=== PATIENT | male | born 1940 | race Caucasian/White ===

== ENCOUNTER 2018-01-02 19:55 | Inpatient (IN) | payer MEDICARE, MEDICAID ==
[2018-01-02 20:36] LABS: % BASOPHILS 0.7 % (0.0-2.0); % EOSINOPHILS 5.2 % (0.0-5.0); % LYMPHOCYTES 25.7 % (20.0-50.0); % MONOCYTES 13.3 % (2.0-10.0); % NEUTROPHILS 55.1 % (40.0-80.0); EOSINOPHILE ABSOLUTE 0.3 Th/cmm (0.1-0.4); HEMATOCRIT 33.8 % (41.0-60); HEMOGLOBIN 11.5 gm/dL (12-16); LYMPHOCYTE ABSOLUTE 1.3 Th/cmm (1.5-3.0); MEAN CELL VOLUME 89.6 fl (80-99); MEAN CORPUSCULAR HEMOGLOBIN 30.4 pg (27.0-31.0); MEAN CORPUSCULAR HGB CONC 33.9 pg (28.0-36.0); MEAN PLATELET VOLUME 7.5 fl; MONOCYTE ABSOLUTE 0.7 Th/cmm (0.3-1.0); NEUTROPHILE ABSOLUTE 2.9 Th/cmm (1.8-8.0); PLATELET COUNT 235 Th/cmm (150-400); RED BLOOD COUNT 3.77 Mil/cmm (3.80-5.80); RED CELL DISTRIBUTION WIDTH 12.8 % (11.5-20.0); WHITE BLOOD COUNT 5.2 Th/cmm (4.8-10.8)
[2018-01-02 20:48] LABS: INR 1.24 (0.5-1.4); PROTHROMBIN TIME (TEST) 12.8 SECONDS (9.5-11.5)
[2018-01-02 20:56] LABS: ALB/GLOB RATIO 1.6 (1.0-1.8); ALBUMIN 3.9 gm/dL (4.2-5.5); ALKALINE PHOSPHATASE 73 U/L (34-104); ANION GAP 10.1 (7.0-16.0); BILIRUBIN,TOTAL 0.3 mg/dL (0.3-1.0); BUN - UREA NITROGEN 30 mg/dL (7-25); CALCIUM SERUM 9.1 mg/dL (8.6-10.3); CHLORIDE 105 mEq/L (98-107); CREATININE - SERUM 1.1 mg/dL (0.7-1.3); GLUCOSE 104 mg/dL (70-105); PHOSPHOROUS 3.3 mg/dL (2.5-5.0); POTASSIUM SERUM 4.1 mEq/L (3.5-5.1); SGOT 11 U/L (13-39); SGPT/ALT 6 U/L (7-52); SODIUM SERUM 137 mEq/L (136-145); TOTAL PROTEIN,SERUM 6.4 gm/dL (6.0-8.3)
--- NOTE | 2018-01-02 21:05 | ED Physician Chart ---
ED Chief Complaint/HPI - Patient Information Date Seen:: 01/02/18 Time Seen:: 20:00 Chief Complaint:: increased agitation and psychosis History of Present Illness:: increased agitation and psychosis Allergies:: Allergies Allergy/AdvReac Type Severity Reaction Status Date / Time No Known Allergies Allergy Verified 01/02/18 20:17 Vitals:: Vital Signs - 8 hr 01/02/18 20:00 Temp 98.9 F HR 70 RR 18 BP 118/74 O2 Sat % 100 Historian:: Medical Records Review:: Nurse's Note Reviewed, Transfer documents Reviewed ED Review of Systems - Review of Systems General/Constitutional: No fever, No chills, No weight loss, No weakness, No diaphoresis, No edema, No loss of appetite Skin: No skin lesions, No rash, No bruising Head: No headache, No light-headedness Eyes: No loss of vision, No pain, No diplopia ENT: No earache, No nasal drainage, No sore throat, No tinnitus Neck: No neck pain, No swelling, No thyromegaly, No stiffness, No mass noted Cardio Vascular: No chest pain, No palpitations, No PND, No orthopnea, No edema Pulmonary: No SOB, No cough, No sputum, No wheezing GI: No nausea, No vomiting, No diarrhea, No pain, No melena, No hematochezia, No constipation, No hematemesis G/U: No dysuria, No frequency, No hematuria Musculoskeletal: No bone or joint pain, No back pain, No muscle pain Endocrine: No polyuria, No polydipsia Psychiatric: Prior psych history, Other (agitation) Hematopoietic: No bruising, No lymphadenopathy Allergic/Immuno: No urticaria, No angioedema Neurological: No syncope, No focal symptoms, No weakness, No paresthesia, No headache, No seizure, No dizziness, No confusion, No vertigo ED Past Medical History - Past Medical History Past Medical History: HTN, DM, CAD, CHF, PUD/GERD, Dementia, Other (pacemaker; atrial fibrillation; sleep apnea; pneumonia) Psychiatricy History: Bipolar Family Medical History - Family Member Mother History Unknown: Yes Ethnicity: Non- ED Physical Exam - Physical Examination General/Constitutional: Awake, Well-developed, well-nourished, Alert, GCS 15, Non-toxic appearing, Ambulatory Other Gen/Cons comments:: marked agitation patient is a threat to himself and to others. he hits his own right elbow against the wall and is on a blood thinner. Head: Atraumatic Eyes: Lids, conjuctiva normal, PERRL, EOMI Skin: Nl inspection, No rash, No skin lesions, No ecchymosis, Well hydrated, No lymphadenopathy Respiratory: Nl effort/Exclusion, Clear to Auscultation, No Wheeze/Rhonchi/Rales Cardio Vascular: RRR, No murmur, gallop, rubs, NL S1 S2 GI: No tenderness/rebounding/guarding, No organomegaly, No hernia, Normal BS's, Nondistended, No mass/bruits, No McBurney tenderness Extremities: No tenderness or effusion, Full ROM, normal strength in all extremities, No edema, Normal digits & nails Other Extremities comments:: very strong. patient is trying to hit personnel. Neuro/Psych: Alert/oriented Other Neuro/Psych comments:: patient is markedly agitated. Misc: Normal back, No paraspinal tenderness ED Labs/Radiology/EKG Results - Lab Results Results: Laboratory Tests 01/02/18 01/02/18 01/02/18 20:29 20:29 20:29 WBC 5.2 RBC 3.77 L Hgb 11.5 L Hct 33.8 L MCV 89.6 MCH 30.4 MCHC Differential 33.9 RDW 12.8 Plt Count 235 MPV 7.5 Neutrophils % 55.1 Lymphocytes % 25.7 Monocytes % 13.3 H Eosinophils % 5.2 H Basophils % 0.7 PT INR PTT (Actin FS) Sodium 137 Potassium 4.1 Chloride 105 Carbon Dioxide 26.0 Anion Gap 10.1 BUN 30 H Creatinine 1.1 Est GFR ( Amer) TNP Est GFR (Non-Af Amer) TNP BUN/Creatinine Ratio 27.3 Glucose 104 Calcium 9.1 Phosphorus 3.3 Magnesium 2.0 Total Bilirubin 0.3 AST 11 L ALT 6 L Alkaline Phosphatase 73 Total Protein 6.4 Albumin 3.9 L Globulin 2.5 Albumin/Globulin Ratio 1.6 Valproic Acid 33.4 L 01/02/18 20:29 WBC RBC Hgb Hct MCV MCH MCHC Differential RDW Plt Count MPV Neutrophils % Lymphocytes % Monocytes % Eosinophils % Basophils % PT 12.8 H INR 1.24 PTT (Actin FS) 35.9 Sodium Potassium Chloride Carbon Dioxide Anion Gap BUN Creatinine Est GFR ( Amer) Est GFR (Non-Af Amer) BUN/Creatinine Ratio Glucose Calcium Phosphorus Magnesium Total Bilirubin AST ALT Alkaline Phosphatase Total Protein Albumin Globulin Albumin/Globulin Ratio Valproic Acid ED Assessment - Assessment General Assessment: EKG from 8:32:41 p.m.: normal sinus rhythm, LVH, nonspecific ST T wave changes , repolarization, movement artifact. Q waves are prsented throughout in leads II, III and AVF. He also has Q waves in V1 to V6. ST elevation present in V2 to V6? (complicated by movement artifact.) spoke to Dr. Barraza at 10:00 p.m. He will admit the patient. Troponin is positive at 0.51 George admission will be cancelled and patient will be admitted to the acute hospital, to the ICU. ED Septic Shock - . Is Septic Shock (SBP<90, OR Lactate>4 mmol\L) present?: No - <6hrs of presentation: Vital Signs: Vital Signs - 8 hr //18 20:00 Temp 98.9 F HR 70 RR 18 BP 118/74 O2 Sat % 100 ED Reassessment (Disposition) - Reassessment Reassessment Condition:: Unchanged - Diagnosis Diagnosis:: Coronary artery disease ST elevation in multiple leads. Elevated troponin. Pacemaker. COPD DM HTN GERD Dementia Bipolar Pneumonia Atrial fibrillation Sleep apnea CHF - Patient Disposition Discharge/Transfer:: Acute Care w/in this hosp Admitted to:: ICU
[2018-01-02] MEDS ORDERED: Haloperidol Lactate 5 mg/mL 1mL Vial IM STA (21:21)
[2018-01-02] MEDS ORDERED: Haloperidol Lactate 5 mg/mL 1mL Vial ONE (21:21)
[2018-01-02] MEDS ORDERED: Hydrocodone/APAP 5mg/325mg Tab PO PRN (22:07)
[2018-01-02] MEDS ORDERED: guaiFENesin 200 MG/10 ML UDC PO PRN (22:07)
[2018-01-02] MEDS ORDERED: Non-Formulary Item 1 EA (Glucagon,Human Recombinant [Glucagon Emergency Kit] 1 MG) IJ PRN (22:07)
--- NOTE | 2018-01-02 23:23 | History & Physical ---
ADMIT DATE: 01/02/2018 HISTORY OF PRESENT ILLNESS: This patient came with increased agitation, he has increased psychosis and the patient came from [facility]. The patient known to have history of coronary artery disease, history of status post pacemaker, history of hypertension, diabetes and history of CHF and dementia. The patient has history of bipolar disorder. PHYSICAL EXAMINATION: GENERAL: On exam, he is alert, oriented, very agitated male. HEAD: Normal. ENT: Normal. NECK: Supple, nontender. LUNGS: Clear. CARDIOVASCULAR SYSTEM: S1, S2 heard. ABDOMEN: Soft, bowel sounds heard. CENTRAL NERVOUS SYSTEM: Grossly normal. LABORATORY DATA: Troponin was slightly high. The patient's EKG showed Q-waves in LVH pattern. DIAGNOSES: The patient since his troponin was high, diagnoses of possible acute myocardial infarction, ST elevation, status post pacemaker, coronary artery disease, hypertension, history of diabetes, and history of status post pacemaker was made. PLAN: The patient is being admitted to tele bed inpatient and I will have Dr. Rahul Maradiaga see the patient and psychiatrist see the patient, Dr. Malloy and I will follow the patient. JOB# [id number]
[2018-01-02] MEDS: D5-0.45NS 1,000 ML IV SCH (23:59)
[2018-01-03 01:11] VITALS: BP 206/92
[2018-01-03] MEDS ORDERED: Morphine Sulfate 2 mg/mL 1mL Syr IVP PRN ×2 (01:59)
[2018-01-03] MEDS ORDERED: Pneumococcal Vaccine 0.5 mL Vial IM ONE (02:30)
[2018-01-03] MEDS: Morphine Sulfate 2 mg/mL 1mL Syr IVP PRN ×2 (03:44→14:00)
[2018-01-03 04:46] LABS: % EOSINOPHILS 3.9 % (0.0-5.0); % LYMPHOCYTES 15.6 % (20.0-50.0); % MONOCYTES 10.7 % (2.0-10.0); % NEUTROPHILS 69.8 % (40.0-80.0); EOSINOPHILE ABSOLUTE 0.3 Th/cmm (0.1-0.4); HEMATOCRIT 34.8 % (41.0-60); HEMOGLOBIN 11.9 gm/dL (12-16); MEAN CELL VOLUME 89.1 fl (80-99); MEAN CORPUSCULAR HEMOGLOBIN 30.4 pg (27.0-31.0); MEAN CORPUSCULAR HGB CONC 34.1 pg (28.0-36.0); MEAN PLATELET VOLUME 7.8 fl; MONOCYTE ABSOLUTE 0.7 Th/cmm (0.3-1.0); NEUTROPHILE ABSOLUTE 4.7 Th/cmm (1.8-8.0); PLATELET COUNT 220 Th/cmm (150-400); RED BLOOD COUNT 3.91 Mil/cmm (3.80-5.80); RED CELL DISTRIBUTION WIDTH 12.6 % (11.5-20.0); WHITE BLOOD COUNT 6.7 Th/cmm (4.8-10.8)
[2018-01-03 05:27] LABS: ANION GAP 12.3 (7.0-16.0); BUN - UREA NITROGEN 24 mg/dL (7-25); CALCIUM SERUM 9.1 mg/dL (8.6-10.3); CARBON DIOXIDE 22.5 mEq/L (21.0-31.0); CHLORIDE 107 mEq/L (98-107); CHOLESTEROL 146 mg/dL (<200); CREATININE - SERUM 0.9 mg/dL (0.7-1.3); CREATININE KINASE 477 U/L (30-223); GLUCOSE 117 mg/dL (70-105); HDL -HIGH DENSITY LIPOPROTEIN 41 mg/dL (23-92); POTASSIUM SERUM 3.8 mEq/L (3.5-5.1); SODIUM SERUM 138 mEq/L (136-145); TRIGLYCERIDES 83 mg/dL (<150)
[2018-01-03] MEDS: Pantoprazole 40 mg EC Tab PO SCH (07:35)
[2018-01-03] MEDS ORDERED: NUT TX GLUC INTOL LF SOY PO SCH (09:00)
[2018-01-03] MEDS ORDERED: Non-Formulary Item 1 EA (Protein Supplement [Promod] 30 ML) PO SCH (09:00)
[2018-01-03] MEDS ORDERED: FIBER PO SCH (09:00)
[2018-01-03] MEDS ORDERED: [UNRECOGNIZED DRUG - OTHER] PO SCH (09:00)
[2018-01-03] MEDS: Multivitamin w/ Minerals Tab PO SCH (09:15)
[2018-01-03] MEDS: Haloperidol Lactate 5 mg/mL 1mL Vial IVP SCH ×4 (09:35→21:06)
--- NOTE | 2018-01-03 09:48 | Consultation ---
DATE OF CONSULTATION: 01/03/2018 PATIENT'S AGE: 77-year-old. SEX: Male. PHYSICIAN: Dr. Barraza. LABOR ARBITRATOR HEARING OFFICE: Dr. Kwok. TYPE OF THE REPORT: Psychiatric consult. REASON FOR THE CONSULT: Agitation and aggressive behavior. HISTORY OF PRESENT ILLNESS: The patient is a 77-year-old male who was admitted to the hospital with plans that he was going to Geropsych Unit because of increased agitation and irritability as well as psychosis in the senior living where he lives. Upon arrival to the hospital, it was found that the patient has elevated troponin and the patient was admitted to the Intensive Care Unit. In the Intensive Care Unit, the patient is still extremely agitated and in irritable mood and he is also still angry and is still agitated and he was trying to hit staff and others who were trying to help him with his ADLs. He also still has difficulty following directions and he is refusing to take anything orally. The patient also has been suspicious and has been uncooperative with the staff. PAST PSYCHIATRIC HISTORY: The patient has history of what seems to be bipolar disorder according to the chart. PAST MEDICAL HISTORY: The patient was admitted to the hospital with elevated troponin. SOCIAL HISTORY: The patient lives in a senior living. No other information known at this time. Also, no known alcohol or drug use. ALLERGIES: No known allergies. MENTAL STATUS EXAM: The patient appears his stated age. Sedated. Irritable mood. Does not answer any of my questions because of his agitation and irritability and confusion. The patient did not answer any question regarding hallucinations or delusions or suicide or homicide. The patient is alert but seems to be disoriented to time, place, person, and situation. Unable to assess his memory at this time. Poor insight and judgment. ASSESSMENT: PRIMARY DIAGNOSIS: Bipolar disorder, mixed type, severe, with psychotic features. TREATMENT PLAN: The patient currently is refusing to take any medications orally but he does have IV. We will give the patient Haldol IV at this time until the patient is calmer and then we can start him on oral Seroquel. Also, we will continue to monitor his behavior. The patient was supposed to go to Geropsych Unit and if he does go there, we will monitor his behavior and adjust psychotropic medications. Thanks to Dr. Barraza and we will follow up with you. JOB# [id number]
[2018-01-03] MEDS: INSULIN ASPART SLIDING SCALE 100 UNITS/ML UNIT SUBQ SCH ×3 (11:51→21:09)
[2018-01-03 14:59] LABS: URINE SOURCE CLEAN C
[2018-01-03 15:01] LABS: URINE BILIRUBIN NEGATIVE (NEGATIVE); URINE BLOOD NEGATIVE (NEGATIVE); URINE GLUCOSE (UA) NEGATIVE (NEGATIVE); URINE KETONE NEGATIVE (NEGATIVE); URINE LEUKOCYTE ESTERASE NEGATIVE (NEGATIVE); URINE NITRATE NEGATIVE (NEGATIVE); URINE PH 5.5 (4.6 - 8.0); URINE PROTEIN NEGATIVE (NEGATIVE); URINE UROBILINOGEN 0.2 E.U./dL (0.2 - 1.0)
[2018-01-03 15:44] LABS: AMPHETAMINE URINE NEGATIVE (NEGATIVE); BARBITURATES URINE NEGATIVE (NEGATIVE); BENZODIAZEPINES QUAL URINE POSITIVE (NEGATIVE); CANNABINOID THC NEGATIVE (NEGATIVE); COCAINE METABOLITE QUAL URINE NEGATIVE (NEGATIVE); METHADONE URINE NEGATIVE (NEGATIVE); METHAMPHETAMINES QUAL URINE NEGATIVE (NEGATIVE); OPIATES (MORPHINE) QUAL. URINE POSITIVE (NEGATIVE); PHENCYCLIDINE (PCP) URINE NEGATIVE (NEGATIVE); TRICYCLICS (TCA) QUAL. URINE NEGATIVE (NEGATIVE)
[2018-01-03 15:51] LABS: URINE CLARITY CLEAR (CLEAR); URINE COLOR YELLOW; URINE MICROSCOPIC INDICATED? YES
[2018-01-03 15:53] LABS: URINE BACTERIA OCCASIONAL /hpf (NONE SEEN); URINE EPITHELIAL CELLS OCCASIONAL /lpf (FEW); URINE WBC 0-2 /hpf (0-5)
[2018-01-03] MEDS: D5-0.45NS 1,000 ML IV SCH (17:18)
--- NOTE | 2018-01-03 18:59 | Consultation ---
DATE OF CONSULTATION: 01/03/[address] Barraza. This 77-year-old male patient who was transferred to the hospital because of agitation, aggressive behavior and the patient is known to have coronary artery disease, status post pacemaker, hypertension, congestive heart failure, diastolic dysfunction, dementia. The patient at the present time has minimal shortness of breath. PAST MEDICAL HISTORY: The patient has a history of diabetes, COPD, hypertension, GERD, sick sinus syndrome with pacemaker, angina, bipolar, sleep apnea, congestive heart failure, diastolic dysfunction, chronic atrial fibrillation, hypothyroid, sick sinus syndrome with pacemaker. FAMILY HISTORY: Unremarkable. SOCIAL HISTORY: No history of smoking, alcohol abuse. ALLERGIES: None. PHYSICAL EXAMINATION: VITAL SIGNS: Blood pressure 130/80, pulse 76, respirations 28. HEAD: Normocephalic. No lumps. EYES: Pupils equal, reactive to light. Fundi show AV nicking, sclerae white, conjunctivae pink. NECK: Carotid 2+. Normal upstroke. JVD flat. Thyroid not palpable. Lymph nodes not palpable. CHEST: Shows increased AP diameter. No kyphosis, scoliosis. LUNGS: Bilateral bronchovesicular breath sounds. HEART: PMI fifth intercostal space with lateral to midclavicular line. S1, S2, S3, S4. ABDOMEN: Soft. Liver and spleen not palpable. No organomegaly. Bowel sounds active. NEUROLOGIC: Unremarkable. EXTREMITIES: Peripheral pulses 2+. No pedal edema. CLINICAL IMPRESSION: Chest pain, rule out coronary artery disease, diabetes mellitus type 2, hypertension, chronic obstructive pulmonary disease, sick sinus syndrome with pacemaker, gastroesophageal reflux disease, seizure disorder, bipolar, sleep apnea. The patient has pacemaker, which is sensing and capturing well. The patient to continue present care. JOB# [id number]
[2018-01-04] MEDS: Morphine Sulfate 2 mg/mL 1mL Syr IVP PRN ×3 (00:23→14:44)
[2018-01-04 05:11] LABS: BUN - UREA NITROGEN 16 mg/dL (7-25); CALCIUM SERUM 9.1 mg/dL (8.6-10.3); CARBON DIOXIDE 22.8 mEq/L (21.0-31.0); CREATININE - SERUM 0.8 mg/dL (0.7-1.3); GLUCOSE 109 mg/dL (70-105)
[2018-01-04 06:28] LABS: ANION GAP 15.3 (7.0-16.0); CHLORIDE 106 mEq/L (98-107); POTASSIUM SERUM 4.1 mEq/L (3.5-5.1); SODIUM SERUM 140 mEq/L (136-145)
[2018-01-04 07:00] LABS: HEMOGLOBIN 12.4 gm/dL (12-16); MEAN CELL VOLUME 89.2 fl (80-99); MEAN CORPUSCULAR HGB CONC 33.6 pg (28.0-36.0); MEAN PLATELET VOLUME 9.8 fl; PLATELET COUNT 118 Th/cmm (150-400); RED BLOOD COUNT 4.15 Mil/cmm (3.80-5.80); RED CELL DISTRIBUTION WIDTH 12.6 % (11.5-20.0); WHITE BLOOD COUNT 5.8 Th/cmm (4.8-10.8)
[2018-01-04] MEDS: INSULIN ASPART SLIDING SCALE 100 UNITS/ML UNIT SUBQ SCH ×4 (07:15→21:01)
[2018-01-04 07:33] LABS: BAND NEUTROPHILE 3 % (0-10); EOSINOPHIL 1 % (0-5); LYMPHOCYTE 20 % (20-50); MONOCYTE 10 % (2-10); NEUTROPHILS 66 % (40-80)
[2018-01-04 07:34] LABS: BASOPHIL 0 % (0-3)
[2018-01-04] MEDS: Pantoprazole 40 mg EC Tab PO SCH (08:05)
[2018-01-04] MEDS: Haloperidol Lactate 5 mg/mL 1mL Vial IVP SCH ×4 (08:05→20:54)
[2018-01-04] MEDS: Multivitamin w/ Minerals Tab PO SCH (08:05)
[2018-01-04] MEDS: D5-0.45NS 1,000 ML IV SCH ×2 (12:47→21:01)
--- NOTE | 2018-01-04 14:19 | General Progress Note ---
Subjective - Review of Systems Events since last encounter: patient confused in no acute distress Objective - Results Result Diagrams: 01/04/18 04:20 01/04/18 04:20 Recent Labs: Laboratory Last Values WBC 5.8 Th/cmm (4.8-10.8) 01/04/18 04:20 RBC 4.15 Mil/cmm (3.80-5.80) 01/04/18 04:20 Hgb 12.4 gm/dL (12-16) 01/04/18 04:20 Hct 37.0 % (41.0-60) L 01/04/18 04:20 MCV 89.2 fl (80-99) 01/04/18 04:20 MCH 30.0 pg (27.0-31.0) 01/04/18 04:20 MCHC Differential 33.6 pg (28.0-36.0) 01/04/18 04:20 RDW 12.6 % (11.5-20.0) 01/04/18 04:20 Plt Count 118 Th/cmm (150-400) L 01/04/18 04:20 MPV 9.8 fl 01/04/18 04:20 Add Manual Diff YES 01/04/18 04:20 Neutrophils % 69.8 % (40.0-80.0) 01/03/18 04:00 Band Neutrophils % 3 % (0-10) 01/04/18 04:20 Lymphocytes % 15.6 % (20.0-50.0) L 01/03/18 04:00 Monocytes % 10.7 % (2.0-10.0) H 01/03/18 04:00 Eosinophils % 3.9 % (0.0-5.0) 01/03/18 04:00 Basophils % 0.0 % (0.0-2.0) 01/03/18 04:00 Neutrophils (Manual) 66 % (40-80) 01/04/18 04:20 Lymphocytes 20 % (20-50) 01/04/18 04:20 Monocytes 10 % (2-10) 01/04/18 04:20 Eosinophils 1 % (0-5) 01/04/18 04:20 Basophils 0 % (0-3) 01/04/18 04:20 Sickle Cells TAVERN OPERATOR 01/04/18 04:20 PT 12.8 SECONDS (9.5-11.5) H 01/02/18 20:29 INR 1.24 (0.5-1.4) 01/02/18 20:29 PTT (Actin FS) 35.9 SECONDS (26.0-38.0) 01/02/18 20:29 Sodium 140 mEq/L (136-145) 01/04/18 04:20 Potassium 4.1 mEq/L (3.5-5.1) 01/04/18 04:20 Chloride 106 mEq/L (98-107) 01/04/18 04:20 Carbon Dioxide 22.8 mEq/L (21.0-31.0) 01/04/18 04:20 Anion Gap 15.3 (7.0-16.0) 01/04/18 04:20 BUN 16 mg/dL (7-25) 01/04/18 04:20 Creatinine 0.8 mg/dL (0.7-1.3) 01/04/18 04:20 Est GFR ( Amer) TNP 01/04/18 04:20 Est GFR (Non-Af Amer) TNP 01/04/18 04:20 BUN/Creatinine Ratio 20.0 01/04/18 04:20 Glucose 109 mg/dL (70-105) H 01/04/18 04:20 POC Glucose 90 MG/DL (70 - 105) 01/04/18 12:05 Calcium 9.1 mg/dL (8.6-10.3) 01/04/18 04:20 Phosphorus 3.3 mg/dL (2.5-5.0) 01/02/18 20:29 Magnesium 2.0 mg/dL (1.9-2.7) 01/02/18 20:29 Total Bilirubin 0.3 mg/dL (0.3-1.0) 01/02/18 20:29 AST 11 U/L (13-39) L 01/02/18 20:29 ALT 6 U/L (7-52) L 01/02/18 20:29 Alkaline Phosphatase 73 U/L (34-104) 01/02/18 20:29 Creatine Kinase 477 U/L (30-223) H 01/03/18 04:00 CK-MB (CK-2) 4.0 ng/mL (0.6-6.3) 01/03/18 04:00 Troponin I 0.49 ng/mL (0.01-0.05) H* 01/04/18 04:20 B-Natriuretic Peptide 137.0 pg/mL (5.0-100.0) H 01/04/18 04:20 Total Protein 6.4 gm/dL (6.0-8.3) 01/02/18 20:29 Albumin 3.9 gm/dL (4.2-5.5) L 01/02/18 20:29 Globulin 2.5 gm/dL 01/02/18 20: Albumin/Globulin Ratio 1.6 (1.0-1.8) 01/02/18 20:29 Triglycerides 83 mg/dL (<150) 01/03/18 04:00 Cholesterol 146 mg/dL (<200) 01/03/18 04:00 LDL Cholesterol Direct 96 mg/dL (75-193) 01/03/18 04:00 HDL Cholesterol 41 mg/dL (23-92) 01/03/18 04:00 TSH 6.02 uIU/ml (0.34-5.60) H 01/03/18 04:00 Urine Source CLEAN C 01/03/18 13:45 Urine Color YELLOW 01/03/18 13:45 Urine Clarity CLEAR (CLEAR) 01/03/18 13:45 Urine pH 5.5 (4.6 - 8.0) 01/03/18 13:45 Ur Specific Porter 1.025 (1.005-1.030) 01/03/18 13:45 Urine Protein NEGATIVE mg/dL (NEGATIVE) 01/03/18 13:45 Urine Glucose (UA) NEGATIVE mg/dL (NEGATIVE) 01/03/18 13:45 Urine Ketones NEGATIVE mg/dL (NEGATIVE) 01/03/18 13:45 Urine Blood NEGATIVE (NEGATIVE) 01/03/18 13:45 Urine Nitrate NEGATIVE (NEGATIVE) 01/03/18 13:45 Urine Bilirubin NEGATIVE (NEGATIVE) 01/03/18 13:45 Urine Urobilinogen 0.2 E.U./dL (0.2 - 1.0) 01/03/18 13:45 Ur Leukocyte Esterase NEGATIVE (NEGATIVE) 01/03/18 13:45 Urine RBC Not Reportable 01/03/18 13:45 Urine WBC 0-2 /hpf (0-5) 01/03/18 13:45 Ur Epithelial Cells OCCASIONAL /lpf (FEW) 01/03/18 13:45 Urine Bacteria OCCASIONAL /hpf (NONE SEEN) 01/03/18 13:45 Urine Opiates Screen POSITIVE (NEGATIVE) H 01/03/18 13:45 Urine Methadone Screen NEGATIVE (NEGATIVE) 01/03/18 13:45 Ur Barbiturates Screen NEGATIVE (NEGATIVE) 01/03/18 13:45 Valproic Acid < 10.0 ug/mL (50.0-100.0) L 01/04/18 04:20 Ur Tricyclics Screen NEGATIVE (NEGATIVE) 01/03/18 13:45 Ur Phencyclidine Scrn NEGATIVE (NEGATIVE) 01/03/18 13:45 Amphetamines Screen NEGATIVE (NEGATIVE) 01/03/18 13:45 U Methamphetamines Scrn NEGATIVE (NEGATIVE) 01/03/18 13:45 U Benzodiazepines Scrn POSITIVE (NEGATIVE) H 01/03/18 13:45 U Cocaine Metab Screen NEGATIVE (NEGATIVE) 01/03/18 13:45 U Cannabinoids Screen NEGATIVE (NEGATIVE) 01/03/18 13:45 - Physical Exam Vitals and I&O: Vital Signs Temp 98 F 01/04/18 12:00 Pulse 70 01/04/18 12:00 Resp 13 01/04/18 12:00 BP 128/88 01/04/18 12:00 Pulse Ox 98 01/04/18 12:00 Intake & Output 01/03/18 01/04/18 01/04/18 18:59 06:59 18:59 Intake Total 520.833 655.833 318.333 Output Total 750 Balance 520.833 -94.167 318.333 Weight (lbs) 77.474 kg 77.111 kg Intake: Intake, IV Amount 520.833 655.833 318.333 D5-0.45NS 1,000 ml @ 50 520.833 655.833 318.333 mls/hr IV .Q20H [facility] Rx#: [id number] Output: Urine 750 Other: # Voids 3 # Bowel Movements 0 0 Weight Source Bedscale Bedscale Active Medications: Current Medications Acetaminophen (Tylenol) 325 mg PO Q4HR PRN PRN Reason: Pain or Fever >101 Stop: 03/03/18 22:06 Acetaminophen (Tylenol 650mg Supp) 650 mg RC Q4HR PRN PRN Reason: Fever > 101 Stop: 03/03/18 22:06 Acetaminophen/Hydrocodone Bitart (Delmita 5mg/325mg) 1 tab PO Q6HR PRN PRN Reason: Pain (Moderate) Stop: 03/03/18 22:06 Ascorbic Acid (Vitamin C) 500 mg PO DAILY [facility] Stop: 03/04/18 08:59 Last Admin: 01/04/18 08:05 Dose: 500 mg Calcium Carbonate (Tums) 500 mg PO Q6HR PRN PRN Reason: Indigestion Stop: 03/03/18 22:06 Dextrose (Glutose 40%) 15 gm PO DAILY PRN PRN Reason: LOW BLOOD SUGAR Stop: 03/03/18 22:06 Divalproex Sodium (Depakote Dr) 250 mg PO BID [facility]; Protocol Stop: 03/04/18 08:59 Last Admin: 01/04/18 08:04 Dose: 250 mg Docusate Sodium (Colace) 100 mg PO BID [facility] Stop: 03/04/18 08:59 Last Admin: 01/04/18 08:05 Dose: 100 mg Donepezil HCl (Aricept) 5 mg PO BID [facility] Stop: 03/04/18 08:59 Last Admin: 01/04/18 08:05 Dose: 5 mg Famotidine (Pepcid) 20 mg PO BID [facility] Stop: 03/04/18 08:59 Last Admin: 01/04/18 08:04 Dose: 20 mg Guaifenesin (Robitussin) 200 mg PO Q6HR PRN PRN Reason: Agitation Stop: 03/03/18 22:06 Haloperidol Lactate (Haldol) 2 mg IVP QID [facility] Stop: 03/04/18 08:59 Last Admin: 01/04/18 12:46 Dose: 2 mg Dextrose/Sodium Chloride (D5-0.45ns) 1,000 mls @ 50 mls/hr IV .Q20H [facility] Stop: 03/03/18 23:44 Last Admin: 01/04/18 12:47 Dose: 50 mls/hr Insulin Aspart (Novolog Insulin Sliding Scale) 0 units SUBQ ACHS [facility]; Protocol Stop: 03/04/18 11:29 Last Admin: 01/04/18 12:15 Dose: Not Given Lorazepam (Ativan) 1 mg IVP Q4HR PRN; Protocol PRN Reason: Agitation Stop: 03/04/18 01:55 Last Admin: 01/03/18 13:37 Dose: 1 mg Metoprolol Tartrate (Lopressor) 25 mg PO BID [facility] Stop: 03/04/18 08:59 Last Admin: 01/04/18 08:05 Dose: 25 mg Morphine Sulfate (Morphine) 1 mg IVP Q4HR PRN PRN Reason: MODERATE PAIN (LEVEL 4-6) Stop: 03/04/18 01:58 Morphine Sulfate (Morphine) 2 mg IVP Q4HR PRN PRN Reason: Severe Pain (LEVEL 8-10) Stop: 03/04/18 01:58 Last Admin: 01/04/18 08:18 Dose: 2 mg Ondansetron HCl (Zofran Odt) 4 mg SL Q8H PRN PRN Reason: NAUSEA Stop: 03/03/18 22:44 Ondansetron HCl (Zofran) 4 mg IV Q6H PRN PRN Reason: Nausea / Vomiting Stop: 03/04/18 02:00 Pantoprazole Sodium (Protonix) 40 mg PO QDAC [facility] Stop: 03/04/18 07:29 Last Admin: 01/04/18 08:05 Dose: 40 mg Rivaroxaban (Xarelto) 20 mg PO DAILY@1700 [facility] Stop: 03/04/18 16:59 Last Admin: 01/03/18 17:58 Dose: Not Given
--- NOTE | 2018-01-04 15:05 | Cardiology ---
01/03/[address] Barraza. M-MODE ECHOCARDIOGRAM: Mitral valve, anterior leaflet of mitral valve shows normal excursion, EF velocity. Posterior leaflet of mitral valve shows normal excursion. Left ventricular posterior wall showed normal thickness excursion. Interventricular septum shows normal excursion. Left ventricle shows hypertrophy of the left ventricle, ejection fraction 65%. Left atrium normal. Aortic root shows normal dimension, normal excursion of aortic leaflets. CONCLUSION: Left ventricular hypertrophy. Ejection fraction 65%. 2D ECHO: Long axis view showed normal sized left ventricle with hypertrophy of the left ventricle. Left atrium normal. Aortic root shows normal dimension, normal excursion of aortic leaflets. Short axis view of mitral valve normal. Short axis view of aortic valve normal. Apical 4-chamber view showed normal sized left ventricle with hypertrophy of the left ventricle. Left atrium normal. Right ventricular cavity, right atrium normal, no pericardial effusion. CLINICAL IMPRESSION: Hypertrophy of the left ventricle, ejection fraction 65%. Doppler study shows moderate mitral regurgitation, moderate tricuspid regurgitation, moderate pulmonary regurgitation, right ventricular systolic pressure 42 mmHg with mild pulmonary hypertension. [facility]# [id number]
[2018-01-05] MEDS: INSULIN ASPART SLIDING SCALE 100 UNITS/ML UNIT SUBQ SCH ×5 (06:42→20:07)
[2018-01-05] MEDS: Pantoprazole 40 mg EC Tab PO SCH (08:15)
[2018-01-05] MEDS: Multivitamin w/ Minerals Tab PO SCH (08:15)
[2018-01-05] MEDS: Haloperidol Lactate 5 mg/mL 1mL Vial IVP SCH ×4 (08:23→20:08)
--- NOTE | 2018-01-05 11:44 | General Progress Note ---
Subjective - Review of Systems Events since last encounter: patient confused Objective - Results Result Diagrams: 01/04/18 04:20 01/04/18 04:20 Recent Labs: Laboratory Last Values WBC 5.8 Th/cmm (4.8-10.8) 01/04/18 04:20 RBC 4.15 Mil/cmm (3.80-5.80) 01/04/18 04:20 Hgb 12.4 gm/dL (12-16) 01/04/18 04:20 Hct 37.0 % (41.0-60) L 01/04/18 04:20 MCV 89.2 fl (80-99) 01/04/18 04:20 MCH 30.0 pg (27.0-31.0) 01/04/18 04:20 MCHC Differential 33.6 pg (28.0-36.0) 01/04/18 04:20 RDW 12.6 % (11.5-20.0) 01/04/18 04:20 Plt Count 118 Th/cmm (150-400) L 01/04/18 04:20 MPV 9.8 fl 01/04/18 04:20 Add Manual Diff YES 01/04/18 04:20 Neutrophils % 69.8 % (40.0-80.0) 01/03/18 04:00 Band Neutrophils % 3 % (0-10) 01/04/18 04:20 Lymphocytes % 15.6 % (20.0-50.0) L 01/03/18 04:00 Monocytes % 10.7 % (2.0-10.0) H 01/03/18 04:00 Eosinophils % 3.9 % (0.0-5.0) 01/03/18 04:00 Basophils % 0.0 % (0.0-2.0) 01/03/18 04:00 Neutrophils (Manual) 66 % (40-80) 01/04/18 04:20 Lymphocytes 20 % (20-50) 01/04/18 04:20 Monocytes 10 % (2-10) 01/04/18 04:20 Eosinophils 1 % (0-5) 01/04/18 04:20 Basophils 0 % (0-3) 01/04/18 04:20 Sickle Cells [employer]GER 01/04/18 04:20 PT 12.8 SECONDS (9.5-11.5) H 01/02/18 20:29 INR 1.24 (0.5-1.4) 01/02/18 20:29 PTT (Actin FS) 35.9 SECONDS (26.0-38.0) 01/02/18 20:29 Sodium 140 mEq/L (136-145) 01/04/18 04:20 Potassium 4.1 mEq/L (3.5-5.1) 01/04/18 04:20 Chloride 106 mEq/L (98-107) 01/04/18 04:20 Carbon Dioxide 22.8 mEq/L (21.0-31.0) 01/04/18 04:20 Anion Gap 15.3 (7.0-16.0) 01/04/18 04:20 BUN 16 mg/dL (7-25) 01/04/18 04:20 Creatinine 0.8 mg/dL (0.7-1.3) 01/04/18 04:20 Est GFR ( Amer) TNP 01/04/18 04:20 Est GFR (Non-Af Amer) TNP 01/04/18 04:20 BUN/Creatinine Ratio 20.0 01/04/18 04:20 Glucose 109 mg/dL (70-105) H 01/04/18 04:20 POC Glucose 102 MG/DL (70 - 105) 01/05/18 06:40 Calcium 9.1 mg/dL (8.6-10.3) 01/04/18 04:20 Phosphorus 3.3 mg/dL (2.5-5.0) 01/02/18 20:29 Magnesium 2.0 mg/dL (1.9-2.7) 01/02/18 20:29 Total Bilirubin 0.3 mg/dL (0.3-1.0) 01/02/18 20:29 AST 11 U/L (13-39) L 01/02/18 20:29 ALT 6 U/L (7-52) L 01/02/18 20:29 Alkaline Phosphatase 73 U/L (34-104) 01/02/18 20:29 Creatine Kinase 477 U/L (30-223) H 01/03/18 04:00 CK-MB (CK-2) 4.0 ng/mL (0.6-6.3) 01/03/18 04:00 Troponin I 0.49 ng/mL (0.01-0.05) H* 01/04/18 04:20 B-Natriuretic Peptide 137.0 pg/mL (5.0-100.0) H 01/04/18 04:20 Total Protein 6.4 gm/dL (6.0-8.3) 01/02/18 20:29 Albumin 3.9 gm/dL (4.2-5.5) L 01/02/18 20:29 Globulin 2.5 gm/dL 01/02/18 20:29 Albumin/Globulin Ratio 1.6 (1.0-1.8) 01/02/18 20:29 Triglycerides 83 mg/dL (<150) 01/03/18 04:00 Cholesterol 146 mg/dL (<200) 01/03/18 04:00 LDL Cholesterol Direct 96 mg/dL (75-193) 01/03/18 04:00 HDL Cholesterol 41 mg/dL (23-92) 01/03/18 04:00 TSH 6.02 uIU/ml (0.34-5.60) H 01/03/18 04:00 Urine Source CLEAN C 01/03/18 13:45 Urine Color YELLOW 01/03/18 13:45 Urine Clarity CLEAR (CLEAR) 01/03/18 13:45 Urine pH 5.5 (4.6 - 8.0) 01/03/18 13:45 Ur Specific [place] 1.025 (1.005-1.030) 01/03/18 13:45 Urine Protein NEGATIVE mg/dL (NEGATIVE) 01/03/18 13:45 Urine Glucose (UA) NEGATIVE mg/dL (NEGATIVE) 01/03/18 13:45 Urine Ketones NEGATIVE mg/dL (NEGATIVE) 01/03/18 13:45 Urine Blood NEGATIVE (NEGATIVE) 01/03/18 13:45 Urine Nitrate NEGATIVE (NEGATIVE) 01/03/18 13:45 Urine Bilirubin NEGATIVE (NEGATIVE) 01/03/18 13:45 Urine Urobilinogen 0.2 E.U./dL (0.2 - 1.0) 01/03/18 13:45 Ur Leukocyte Esterase NEGATIVE (NEGATIVE) 01/03/18 13:45 Urine RBC Not Reportable 01/03/18 13:45 Urine WBC 0-2 /hpf (0-5) 01/03/18 13:45 Ur Epithelial Cells OCCASIONAL /lpf (FEW) 01/03/18 13:45 Urine Bacteria OCCASIONAL /hpf (NONE SEEN) 01/03/18 13:45 Urine Opiates Screen POSITIVE (NEGATIVE) H 01/03/18 13:45 Urine Methadone Screen NEGATIVE (NEGATIVE) 01/03/18 13:45 Ur Barbiturates Screen NEGATIVE (NEGATIVE) 01/03/18 13:45 Valproic Acid < 10.0 ug/mL (50.0-100.0) L 01/04/18 04:20 Ur Tricyclics Screen NEGATIVE (NEGATIVE) 01/03/18 13:45 Ur Phencyclidine Scrn NEGATIVE (NEGATIVE) 01/03/18 13:45 Amphetamines Screen NEGATIVE (NEGATIVE) 01/03/18 13:45 U Methamphetamines Scrn NEGATIVE (NEGATIVE) 01/03/18 13:45 U Benzodiazepines Scrn POSITIVE (NEGATIVE) H 01/03/18 13:45 U Cocaine Metab Screen NEGATIVE (NEGATIVE) 01/03/18 13:45 U Cannabinoids Screen NEGATIVE (NEGATIVE) 01/03/18 13:45 - Physical Exam Vitals and I&O: Vital Signs Temp 97.4 F 01/05/18 10:03 Pulse 72 01/05/18 10:03 Resp 21 01/05/18 10:03 BP 90/50 01/05/18 10:03 Pulse Ox 96 01/05/18 04:00 Intake & Output 01/04/18 01/05/18 01/05/18 18:59 06:59 18:59 Intake Total 138.456 6213.834 Output Total 1400 Balance 318.333 60.834 Weight (lbs) 77.111 kg Intake: Intake, IV Amount 318.333 860.834 D5-0.45NS 1,000 ml @ 50 318.333 860.834 mls/hr IV .Q20H [facility] Rx#: [id number] Oral 600 Output: Urine 1400 Other: # Voids 2 # Bowel Movements 0 Weight Source Bedscale Active Medications: Current Medications Acetaminophen (Tylenol) 325 mg PO Q4HR PRN PRN Reason: Pain or Fever >101 Stop: 03/03/18 22:06 Acetaminophen (Tylenol 650mg Supp) 650 mg RC Q4HR PRN PRN Reason: Fever > 101 Stop: 03/03/18 22:06 Acetaminophen/Hydrocodone Bitart ([place] 5mg/325mg) 1 tab PO Q6HR PRN PRN Reason: Pain (Moderate) Stop: 03/03/18 22:06 Ascorbic Acid (Vitamin C) 500 mg PO DAILY [facility] Stop: 03/04/18 08:59 Last Admin: 01/05/18 08:15 Dose: 500 mg Calcium Carbonate (Tums) 500 mg PO Q6HR PRN PRN Reason: Indigestion Stop: 03/03/18 22:06 Dextrose (Glutose 40%) 15 gm PO DAILY PRN PRN Reason: LOW BLOOD SUGAR Stop: 03/03/18 22:06 Divalproex Sodium (Depakote Dr) 250 mg PO BID [facility]; Protocol Stop: 03/04/18 08:59 Last Admin: 01/05/18 08:15 Dose: 250 mg Docusate Sodium (Colace) 100 mg PO BID [facility] Stop: 03/04/18 08:59 Last Admin: 01/05/18 08:15 Dose: 100 mg Donepezil HCl (Aricept) 5 mg PO BID [facility] Stop: 03/04/18 08:59 Last Admin: 01/05/18 08:16 Dose: 5 mg Famotidine (Pepcid) 20 mg PO BID [facility] Stop: 03/04/18 08:59 Last Admin: 01/05/18 08:16 Dose: 20 mg Guaifenesin (Robitussin) 200 mg PO Q6HR PRN PRN Reason: Agitation Stop: 03/03/18 22:06 Haloperidol Lactate (Haldol) 2 mg IVP QID [facility] Stop: 03/04/18 08:59 Last Admin: 01/05/18 08:23 Dose: 2 mg Insulin Aspart (Novolog Insulin Sliding Scale) 0 units SUBQ ACHS [facility]; Protocol Stop: 03/04/18 11:29 Last Admin: 01/05/18 06:42 Dose: Not Given Lorazepam (Ativan) 1 mg IVP Q4HR PRN; Protocol PRN Reason: Agitation Stop: 03/04/18 01:55 Last Admin: 01/04/18 15:26 Dose: 1 mg Metoprolol Tartrate (Lopressor) 25 mg PO BID [facility] Stop: 03/04/18 08:59 Last Admin: 01/05/18 08:22 Dose: Not Given Morphine Sulfate (Morphine) 1 mg IVP Q4HR PRN PRN Reason: MODERATE PAIN (LEVEL 4-6) Stop: 03/04/18 01:58 Morphine Sulfate (Morphine) 2 mg IVP Q4HR PRN PRN Reason: Severe Pain (LEVEL 8-10) Stop: 03/04/18 01:58 Last Admin: 01/04/18 14:44 Dose: 2 mg Ondansetron HCl (Zofran Odt) 4 mg SL Q8H PRN PRN Reason: NAUSEA Stop: 03/03/18 22:44 Ondansetron HCl (Zofran) 4 mg IV Q6H PRN PRN Reason: Nausea / Vomiting Stop: 03/04/18 02:00 Pantoprazole Sodium (Protonix) 40 mg PO QDAC [facility] Stop: 03/04/18 07:29 Last Admin: 01/05/18 08:15 Dose: 40 mg Rivaroxaban (Xarelto) 20 mg PO DAILY@1700 [facility] Stop: 03/04/18 16:59 Last Admin: 01/04/18 17:10 Dose: Not Given
[2018-01-06] MEDS: Pantoprazole 40 mg EC Tab PO SCH (06:36)
[2018-01-06] MEDS: INSULIN ASPART SLIDING SCALE 100 UNITS/ML UNIT SUBQ SCH ×2 (06:36→13:19)
[2018-01-06] MEDS: Multivitamin w/ Minerals Tab PO SCH (08:42)
[2018-01-06] MEDS: Haloperidol Lactate 5 mg/mL 1mL Vial IVP SCH (08:43)
[2018-01-06] MEDS ORDERED: Haloperidol Lactate 5 mg/mL 1mL Vial IVP PRN (11:50)
--- NOTE | 2018-01-13 23:43 | Discharge Summary ---
DATE OF DISCHARGE: 01/06/2018 HOSPITAL COURSE: This patient was admitted on 01/02 at [facility]. He was discharged on 01/06. He came for increasing agitation and history of hypertension, diabetes, dementia, and status post pacemaker. We found that the patient's troponin was slightly high and EKG showed abnormal Q-waves ____. The patient was admitted to ICU initially. Psychiatrist, I asked Dr. Maradiaga to see the patient. I also asked psychiatrist, Dr. Kwok saw patient. The patient gradually improved and he was ruled out. The patient was in stable condition on 01/06 with a final diagnoses of history of diabetes, hypertension, status post pacemaker, history of pacemaker, history of coronary artery disease, and GA ruled out. The patient was sent back to [facility] where his primary care doctor, ____ will follow the patient. CONDITION AT TIME OF DISCHARGE: Stable. MEDICATIONS: See the reconciliation sheet. JOB# [id number]
== END 2018-01-06 14:30 | DRG 303 ==
LOC: ER 19:55 → GERO 21:10 → UNDOADMIN 21:10 → ICU 22:00
PROVIDERS: ADMIT Internal Medicine; ATTEND Internal Medicine
DX: I25.10 Atherosclerotic heart disease of native coronary artery without angina pectoris (principal); F31.64 Bipolar disorder, current episode mixed, severe, with psychotic features; I50.30 Unspecified diastolic (congestive) heart failure; E11.9 Type 2 diabetes mellitus without complications; I49.5 Sick sinus syndrome; J44.9 Chronic obstructive pulmonary disease, unspecified; G40.909 Epilepsy, unspecified, not intractable, without status epilepticus; G47.30 Sleep apnea, unspecified; I48.2 Chronic atrial fibrillation; I11.0 Hypertensive heart disease with heart failure; K21.9 Gastro-esophageal reflux disease without esophagitis; Z87.11 Personal history of peptic ulcer disease; Z87.01 Personal history of pneumonia (recurrent); Z95.0 Presence of cardiac pacemaker; Z23 Encounter for immunization
CPT/HCPCS: 36415-UA; 80048-TC; 80053-TC; 80061-TC; 80164-TC; 80307; 81001-TC; 82550-TC; 82553; 82948-90; 83735-TC; 83880-TC; 84100-TC; 84443-TC; 84484-TC; 85007-TC; 85025-TC; 85610-TC; 93005; J1200; J1630; J1815; J2060; J2270; Z7610